=== PATIENT | female | born 1995 | race American Indian/Alaskan Native ===

== ENCOUNTER 2021-03-30 10:27 | Outpatient (CLI) | payer MEDICAID ==
[2021-03-30 11:03] VITALS: BP 101/65
[2021-03-30] MEDS ORDERED: LACTATED RINGERS 1,000 ML IV ONE (11:52)
[2021-03-30] MEDS ORDERED: LACTATED RINGERS 500 ML IV ONE (12:18)
[2021-03-30] MEDS ORDERED: LACTATED RINGERS 1,000 ML IV SCH (12:45)
[2021-03-30] MEDS ORDERED: TERBUTALINE 1 MG/1 ML INJ SUB-Q SCH (13:00)
[2021-03-30 13:55] LABS: Bilirubin,Urine NEG (Negative); Blood,Urine NEG (Negative); Color,Urine Yellow (Yellow); Mucus,Urine FEW /HPF; Protein,Urine <15 mg/dL mg/dL (Negative)
== END 2021-03-30 15:03 | disposition home or self-care (01) ==
LOC: TRG 10:27 → APU 10:34 → TRG 15:03
PROVIDERS: ATTEND Obstetrics & Gynecology
DX: O26.893 Other specified pregnancy related conditions, third trimester (principal); Z3A.31 31 weeks gestation of pregnancy; Z79.899 Other long term (current) drug therapy
CPT/HCPCS: 81001; 87086; 96360; 96361; 96372; J3105; J7120

== ENCOUNTER 2021-04-07 18:05 | Outpatient (CLI) | payer MEDICAID ==
[2021-04-07 20:08] VITALS: BP 111/67
[2021-04-07] MEDS ORDERED: LACTATED RINGERS 1,000 ML IV ONE (20:23)
[2021-04-07 21:10] LABS: Bacteria,Urine 1+ /HPF (Negative); Bilirubin,Urine NEG (Negative); Blood,Urine NEG (Negative); Color,Urine Yellow (Yellow); Hyaline Casts,Urine 2 /LPF; Mucus,Urine 3+ /HPF
[2021-04-07] MEDS: TERBUTALINE 1 MG/1 ML INJ SUB-Q PRN ×2 (22:09→22:48)
[2021-04-07] MEDS ORDERED: BETAMET ACET/BETAMET NA PH 6 MG/ML INJ 5 ML MDV IM ONE (22:52)
[2021-04-08] MEDS ORDERED: LIDOCAINE-MPF (1%) 10 MG/1 ML VIAL 5 ML INFILTRATI ONE (00:17)
[2021-04-08] MEDS ORDERED: LACTATED RINGERS 1,000 ML IV ONE (00:17)
[2021-04-08] MEDS: TERBUTALINE 1 MG/1 ML INJ SUB-Q PRN (00:36)
== END 2021-04-08 01:50 | disposition home or self-care (01) ==
LOC: APU 18:05 → TRG 18:05 → APU 18:06 → TRG 04-08 01:50
PROVIDERS: ATTEND Obstetrics & Gynecology
DX: O26.893 Other specified pregnancy related conditions, third trimester (principal); R10.2 Pelvic and perineal pain; R10.9 Unspecified abdominal pain; Z3A.32 32 weeks gestation of pregnancy
CPT/HCPCS: 36415; 59025; 81001; 84112; 87086; 96360; 96372; J0696; J0702; J3105; J7120; 96361

== ENCOUNTER 2021-04-08 22:12 | Outpatient (CLI) | payer MEDICAID ==
[2021-04-08] MEDS ORDERED: LACTATED RINGERS 1,000 ML IV ONE (22:46)
[2021-04-08 22:50] VITALS: BP 116/63
[2021-04-08] MEDS ORDERED: BETAMET ACET/BETAMET NA PH 6 MG/ML INJ 5 ML MDV IM ONE (23:00)
[2021-04-08] MEDS ORDERED: NIFEdipine*For Tocolysis only* 10 MG CAPSULE PO ONE (23:18)
== END 2021-04-09 00:25 | disposition home or self-care (01) ==
LOC: TRG 22:12 → APU 22:14 → TRG 04-09 00:25
PROVIDERS: ATTEND Obstetrics & Gynecology
DX: Z34.93 Encounter for supervision of normal pregnancy, unspecified, third trimester (principal); Z3A.32 32 weeks gestation of pregnancy
CPT/HCPCS: 59025; J0702

== ENCOUNTER 2021-04-09 16:48 | Outpatient (CLI) | payer MEDICAID ==
[2021-04-09 17:41] VITALS: BP 102/60
[2021-04-09] MEDS ORDERED: LACTATED RINGERS 500 ML IV ONE (18:49)
[2021-04-09] MEDS ORDERED: ACETAMINOPHEN 500 MG TAB PO ONE (18:57)
[2021-04-09] MEDS ORDERED: CLINDAMYCIN 300 MG CAP PO ONE (19:10)
[2021-04-09] MEDS ORDERED: LACTATED RINGERS 1,000 ML IV ONE (19:32)
[2021-04-09 20:25] LABS: RBC,Urine < 1.0 /HPF (0.0-6.0)
[2021-04-09 20:40] LABS: Bilirubin,Urine Negative (Negative); Blood,Urine Negative (Negative); Color,Urine Yellow (Yellow); Urobilinogen,Urine < 2.0 mg/dL (<2.0)
== END 2021-04-09 21:02 | disposition home or self-care (01) ==
LOC: TRG 16:48 → APU 16:50 → TRG 21:02
PROVIDERS: ATTEND Obstetrics & Gynecology
DX: O26.893 Other specified pregnancy related conditions, third trimester (principal); R10.30 Lower abdominal pain, unspecified; Z3A.33 33 weeks gestation of pregnancy
CPT/HCPCS: 81001; 96360; J7120

== ENCOUNTER 2021-04-13 21:48 | Outpatient (CLI) | payer MEDICAID ==
[2021-04-13 22:44] VITALS: BP 105/66
[2021-04-13] MEDS ORDERED: LACTATED RINGERS 1,000 ML IV ONE (22:52)
[2021-04-13 23:14] LABS: Bacteria,Urine 1+ /HPF (Negative); Bilirubin,Urine NEG (Negative); Blood,Urine NEG (Negative); Color,Urine Yellow (Yellow); Mucus,Urine 1+ /HPF; Protein,Urine <15 mg/dL mg/dL (Negative); Urobilinogen,Urine < 2.0 mg/dL (<2.0)
[2021-04-14] MEDS ORDERED: cefTRIAXone/NS 1 GM/50 ML 1 GM/50 ML BAG IV SCH (00:40)
[2021-04-14] MEDS ORDERED: TERBUTALINE 1 MG/1 ML INJ SUB-Q ONE (01:47)
== END 2021-04-14 02:35 | disposition home or self-care (01) ==
LOC: TRG 21:48 → APU 21:49 → TRG 04-14 02:35
PROVIDERS: ATTEND Obstetrics & Gynecology
DX: O47.03 False labor before 37 completed weeks of gestation, third trimester (principal); O99.513 Diseases of the respiratory system complicating pregnancy, third trimester; Z3A.33 33 weeks gestation of pregnancy; J45.909 Unspecified asthma, uncomplicated
CPT/HCPCS: 36415; 59025; 81001; 84112; 87086; 96365; 96366; 96372; J0696; J3105; J7120; 96360; 96361; J3490

== ENCOUNTER 2021-04-23 09:43 | Outpatient (CLI) | payer MEDICAID ==
[2021-04-23] MEDS ORDERED: LACTATED RINGERS 1,000 ML IV ONE (10:37)
[2021-04-23 10:44] LABS: Bacteria,Urine 1+ /HPF (Negative); Bilirubin,Urine NEG (Negative); Blood,Urine NEG (Negative); Color,Urine Amber (Yellow); Mucus,Urine 3+ /HPF
[2021-04-23 11:28] LABS: Amphetamine Screen,Urine PRESUMPTIVE NEGATIVE; Benzodiazepines Screen,Urine PRESUMPTIVE NEGATIVE; Cannabinoid Screen,Urine PRESUMPTIVE NEGATIVE; Cocaine Screen,Urine PRESUMPTIVE NEGATIVE; Methadone Screen,Urine PRESUMPTIVE NEGATIVE; Opiate Screen,Urine PRESUMPTIVE NEGATIVE
[2021-04-23 14:05] VITALS: BP 109/62
== END 2021-04-23 14:15 | disposition home or self-care (01) ==
LOC: TRG 09:43 → APU 09:44 → TRG 14:15
PROVIDERS: ATTEND Obstetrics & Gynecology
DX: O26.893 Other specified pregnancy related conditions, third trimester (principal); R10.9 Unspecified abdominal pain; O99.513 Diseases of the respiratory system complicating pregnancy, third trimester; J45.909 Unspecified asthma, uncomplicated; Z3A.35 35 weeks gestation of pregnancy
CPT/HCPCS: 59025; 80307; 81001; 87086; 96360; 96361; J7120; J3490